=== PATIENT | female | born 1970 | race Caucasian/White ===

== ENCOUNTER 2016-09-29 12:13 | Inpatient (IN) | payer OTHER ==
[2016-09-29 12:47] VITALS: BMI 21.6
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
[2016-09-29] MEDS ORDERED: diphenhydrAMINE HCL 50 MG CAPSULE PO PRN (14:14)
[2016-09-29] MEDS ORDERED: ACETAMINOPHEN 325 MG TABLET (FP) PO PRN (14:14)
[2016-09-29] MEDS ORDERED: guaiFENesin/D-METHORPHAN HB 10 ML UNIT-DOSE CUPS PO PRN (14:14)
[2016-09-29] MEDS ORDERED: MAGNESIUM HYDROX 2400MG/30ML ORAL SUSPENSION 30 ML CUP PO PRN (14:14)
[2016-09-29] MEDS ORDERED: P-EPHED 60MG/TRIPROLIDI 2.5MG TABLET PO PRN (14:14)
[2016-09-29] MEDS ORDERED: hydrOXYzine PAMOATE 50 MG CAPSULE (FP) PO PRN (14:14)
[2016-09-29] MEDS ORDERED: IBUPROFEN 400 MG TABLET (FP) PO PRN (14:14)
[2016-09-29] MEDS ORDERED: MAGNESIUM CITRATE 300 ML BOTTLE PO PRN (14:14)
[2016-09-29] MEDS ORDERED: LOPERAMIDE HCL 2 MG CAPSULE PO PRN (14:14)
[2016-09-29] MEDS ORDERED: MENTHOL/PHENOL 1 EACH UD MM PRN (14:14)
[2016-09-29] MEDS ORDERED: MAG HYDROX/AL HYDROX/SIMETH 30 ML UNIT-DOSE CUP PO PRN (14:14)
[2016-09-29] MEDS ORDERED: diazePAM 5 MG TABLET PO ONE (14:45)
[2016-09-29] MEDS: diazePAM 5 MG TABLET PO SCH ×2 (15:35→22:18)
[2016-09-29 19:26] LABS: URINE APPEARANCE SLCLOUDY; URINE BILIRUBIN NEGATIVE (NEGATIVE); URINE BLOOD NEGATIVE (NEGATIVE); URINE COLOR DKYELLOW; URINE GLUCOSE (UA) NEGATIVE (NEGATIVE); URINE KETONE TRACE (NEGATIVE); URINE LEUK ESTERASE NEGATIVE (NEGATIVE); URINE NITRITE NEGATIVE (NEGATIVE); URINE UROBILINOGEN 2.0 E.U/dl E.U./dl (0.2-1.0)
[2016-09-29 19:27] LABS: URINE PROTEIN 1+ (NEGATIVE)
[2016-09-29] MEDS: diazePAM 5 MG TABLET PO PRN (19:29)
[2016-09-29 19:43] LABS: URINE MUCUS MANY; URINE RBC 2 /hpf (0-3); URINE WBC 2 /hpf (3-5)
[2016-09-29] MEDS: THIAMINE HCL 100 MG TABLET (FP) PO SCH (22:18)
[2016-09-29] MEDS: RANITIDINE HCL 150 MG TABLET (FP) PO SCH (22:18)
[2016-09-30] MEDS: diazePAM 5 MG TABLET PO SCH ×3 (05:27→22:38)
[2016-09-30] MEDS ORDERED: METHADONE HCL 40 MG DISPERSABLE TABLET PO ONE (08:27)
--- NOTE | 2016-09-30 09:38 | CONSULT ---
[facility] Psychiatric Consult - Data Date of interview: 09/30/16 Admission source: [facility] Identifying data: This is 45 years old female with no psychiatric hospitalization history intoxicated with: Alcohol and Nicotine, Opioids Substance Abuse History: Smoking history: Current some day smoker. Have you smoked in the past 12 months: Yes. Aproximately how many cigarettes per day: 1. Hx Chewing Tobacco Use: No. Initiated information on smoking cessation: Yes. 'Breaking Loose' booklet given: 09/29/16. - Substance & Tx. History. Hx Alcohol Use: Yes. Hx Substance Use: Yes. Substance Use Type: Alcohol, Tranquilizers. Hx Substance Use Treatment: No. - Substances Abused. Alcohol-vodka/beer. Route: Oral. Frequency: Daily. Amount used: 2 pts./2 (24 oz.). Age of first use: 31. Date of Last Use: 09/28/16. Xanax. Route: Oral. Frequency: Daily. Amount used: 10-12 tabs. (2 mg.). Age of first use: 41. Date of Last Use: 09/28/16 Medical History: MMTP - 40MG POQD, REPORTS HIGHEST METHADONE 150MG PER DAY IN THE PAST Psychiatric History: Patient reports insomnia, reports taking prior to admission : Ambien 10mg po qhs with good response Physical/Sexual Abuse/Trauma History: Denies Additional Comment: Ambien 10mg po qhs Mental Status Exam - Mental Status Exam Alert and Oriented to: Person Cognitive Function: Fair Patient Appearance: Well Groomed Mood: Anxious Affect: Mood Congruent Patient Behavior: Appropriate Speech Pattern: Appropriate Voice Loudness: Normal Thought Process: Goal Oriented Thought Disorder: Being Controlled Hallucinations: Denies Suicidal Ideation: Denies Homicidal Ideation: Denies Insight/Judgement: Fair Sleep: Difficulty falling asleep Appetite: Weight gain Muscle strength/Tone: Normal Gait/Station: Normal Additional Comments: Ambien 10mg po qhs Psychiatric Findings - Problem List ([place] 1, 2,3) (1) Alcohol dependence with uncomplicated withdrawal Current Visit: Yes Status: Chronic (2) Methadone maintenance therapy patient Current Visit: Yes Status: Chronic Comment: last dose received today with 40mg pending verification (3) Nicotine dependence Current Visit: Yes Status: Chronic Qualifiers: Nicotine product type: cigarettes Substance use status: uncomplicated Qualified Code(s): F17.210 - Nicotine dependence, cigarettes, uncomplicated (4) Sedative, hypnotic or anxiolytic dependence with withdrawal, uncomplicated Current Visit: Yes Status: Chronic (5) Drug-induced mood disorder Current Visit: Yes Status: Acute - Initial Treatment Plan Initial Treatment Plan: Ambien 10mg po qhs
[2016-09-30 10:16] LABS: MCH 30.3 pg (25.7-33.7); MCHC 33.6 g/dl (32.0-36.0); MEAN PLT VOLUME 9.9 fl (7.5-11.1); PLATELET COUNT 314 K/MM3 (134-434); RDW 13.7 % (11.6-15.6); WHITE BLOOD COUNT 7.4 K/mm3 (4.0-10.0)
[2016-09-30] MEDS: PRENATAL VITAMINS W/ FOLIC ACID TABLET (FP) PO SCH (10:20)
[2016-09-30] MEDS: diazePAM 5 MG TABLET PO PRN ×2 (10:20→20:33)
[2016-09-30] MEDS: RANITIDINE HCL 150 MG TABLET (FP) PO SCH ×2 (10:20→22:38)
[2016-09-30] MEDS: NICOTINE 7 MG/24 HOURS TOPICAL PATCH TD SCH (10:21)
[2016-09-30 11:03] LABS: ALBUMIN 3.8 g/dl (3.4-5.0); ALK PHOS 71 U/L (45-117); ANION GAP 11 (8-16); BILIRUBIN,TOTAL 0.7 mg/dL (0.2-1.0); CALCIUM 8.9 mg/dL (8.5-10.1); CO2 23 mmol/L (21-32); CREATININE 0.8 mg/dL (0.55-1.02); GLUCOSE,RANDOM 107 mg/dL (74-106); SGOT/AST 15 U/L (15-37); SGPT/ALT 30 U/L (12-78); TOT PROT 7.4 g/dl (6.4-8.2)
--- NOTE | 2016-09-30 13:41 | PN ---
[facility] CIWA - CIWA Score Nausea/Vomitin Muscle Tremors: 2 Anxiety: 3 Agitation: 3 Paroxysmal Sweats: 3 Orientation: 0-Oriented Tacttile Disturbances: 2-Mild Itch/Numbness/Burn Auditory Disturbances: 0-None Visual Disturbances: 0-None Headache: 0-None Present CIWA-Ar Total Score: 16 S Progress Note (SOAP) Subjective: interrupted sleep, sweats , bodyaches aseab Objective: 09/30/16 13:41 Last Vital Signs Temp Pulse Resp BP Pulse Ox 98.2 F 74 18 109/67 09/30/16 09:38 09/30/16 09:38 09/30/16 09:38 09/30/16 09:38 Laboratory Tests 09/29/16 09/30/16 09/30/16 14:00 06:00 06:00 WBC 7.4 RBC 5.03 Hgb 15.2 Hct 45.2 MCV 90.0 MCHC 33.6 RDW 13.7 Plt Count 314 MPV 9.9 Sodium 140 Potassium 3.8 Chloride 106 Carbon Dioxide 23 Anion Gap 11 BUN 15 Creatinine 0.8 Creat Clearance w eGFR > 60 Random Glucose 107 H Calcium 8.9 Total Bilirubin 0.7 AST 15 ALT 30 Alkaline Phosphatase 71 Total Protein 7.4 Albumin 3.8 Urine Color Dkyellow Urine Appearance Slcloudy Urine pH 5.0 Ur Specific [place] 1.029 Urine Protein 1+ H Urine Glucose (UA) Negative Urine Ketones Trace H Urine Blood Negative Urine Nitrite Negative Urine Bilirubin Negative Urine Urobilinogen 2.0 e.u/dl H Ur Leukocyte Esterase Negative Urine RBC 2 Urine WBC 2 Ur Epithelial Cells Rare Urine Mucus Many RPR Titer 09/30/16 06:00 WBC RBC Hgb Hct MCV MCHC RDW Plt Count MPV Sodium Potassium Chloride Carbon Dioxide Anion Gap BUN Creatinine Creat Clearance w eGFR Random Glucose Calcium Total Bilirubin AST ALT Alkaline Phosphatase Total Protein Albumin Urine Color Urine Appearance Urine pH Ur Specific [place] Urine Protein Urine Glucose (UA) Urine Ketones Urine Blood Urine Nitrite Urine Bilirubin Urine Urobilinogen Ur Leukocyte Esterase Urine RBC Urine WBC Ur Epithelial Cells Urine Mucus RPR Titer Nonreactive 09/30/16 17:49 pt aox3, ambulating , restless 09/30/16 17:50 Assessment: 09/30/16 13:41 withdrawl sx;s 09/30/16 17:49 Plan: cont. detox increase fluids clonidine bid
--- NOTE | 2016-09-30 16:17 | EKG ---
Test Reason : Blood Pressure : / mmHG Vent. Rate : 074 BPM Atrial Rate : 074 BPM P-R Int : 144 ms QRS Dur : 082 ms QT Int : 408 ms P-R-T Axes : 070 060 062 degrees QTc Int : 452 ms NORMAL SINUS RHYTHM NORMAL ECG NO PREVIOUS ECGS AVAILABLE Confirmed by KEE BILLINGSLEY, UNRULY ([id number]) on 09/30/2016 4:17:17 PM Referred By: Thierry Duenas Confirmed By:UNRULY SWEET MD
[2016-09-30] MEDS: THIAMINE HCL 100 MG TABLET (FP) PO SCH (22:38)
[2016-09-30] MEDS: cloNIDine HCL 0.1 MG TABLET PO SCH (22:38)
[2016-09-30] MEDS: ZOLPIDEM TARTRATE 10 MG TABLET (PARK CARE ONLY) PO PRN (22:38)
[2016-10-01] MEDS: diazePAM 5 MG TABLET PO PRN ×3 (06:03→19:07)
[2016-10-01] MEDS ORDERED: METHADONE HCL 40 MG DISPERSABLE TABLET PO ONE (08:42)
[2016-10-01] MEDS: diazePAM 5 MG TABLET PO SCH ×2 (10:34→22:44)
[2016-10-01] MEDS: cloNIDine HCL 0.1 MG TABLET PO SCH ×2 (10:34→22:44)
[2016-10-01] MEDS: RANITIDINE HCL 150 MG TABLET (FP) PO SCH ×2 (10:34→22:44)
[2016-10-01] MEDS: NICOTINE 7 MG/24 HOURS TOPICAL PATCH TD SCH (10:35)
[2016-10-01] MEDS: PRENATAL VITAMINS W/ FOLIC ACID TABLET (FP) PO SCH (10:36)
--- NOTE | 2016-10-01 15:46 | PN ---
[facility] CIWA - CIWA Score Nausea/Vomitin Muscle Tremors: 3 Anxiety: 2 Agitation: 2 Paroxysmal Sweats: 3 Orientation: 1-Uncertain about Date Tacttile Disturbances: 2-Mild Itch/Numbness/Burn Auditory Disturbances: 0-None Visual Disturbances: 2-Mild Sensitivity Headache: 0-None Present CIWA-Ar Total Score: 18 S Progress Note (SOAP) Subjective: Body Aches, Anxious, Chills, Abdominal cramping, Nausea, Diarrhea. Pt. denies cough, SOB, chest pain, and chest tightness. Objective: PT. A & O X 2 (DISORIENTED ABOUT DAY / DATE). PT. OBSERVED AMBULATING ON UNIT. 10/01/16 15:44 Vital Signs Temperature 99 F 10/01/16 10:43 Pulse Rate 71 10/01/16 10:43 Respiratory Rate 18 10/01/16 10:43 Blood Pressure 103/80 10/01/16 10:43 O2 Sat by Pulse Oximetry (%) Laboratory Last Values WBC 7.4 K/mm3 (4.0-10.0) 09/30/16 06:00 RBC 5.03 M/mm3 (3.60-5.2) 09/30/16 06:00 Hgb 15.2 GM/dL (10.7-15.3) 09/30/16 06:00 Hct 45.2 % (32.4-45.2) 09/30/16 06:00 MCV 90.0 fl (80-96) 09/30/16 06:00 MCHC 33.6 g/dl (32.0-36.0) 09/30/16 06:00 RDW 13.7 % (11.6-15.6) 09/30/16 06:00 Plt Count 314 K/MM3 (134-434) 09/30/16 06:00 MPV 9.9 fl (7.5-11.1) 09/30/16 06:00 Sodium 140 mmol/L (136-145) 09/30/16 06:00 Potassium 3.8 mmol/L (3.5-5.1) 09/30/16 06:00 Chloride 106 mmol/L (98-107) 09/30/16 06:00 Carbon Dioxide 23 mmol/L (21-32) 09/30/16 06:00 Anion Gap 11 (8-16) 09/30/16 06:00 BUN 15 mg/dL (7-18) 09/30/16 06:00 Creatinine 0.8 mg/dL (0.55-1.02) 09/30/16 06:00 Creat Clearance w eGFR > 60 (>60) 09/30/16 06:00 Random Glucose 107 mg/dL (74-106) H 09/30/16 06:00 Calcium 8.9 mg/dL (8.5-10.1) 09/30/16 06:00 Total Bilirubin 0.7 mg/dL (0.2-1.0) 09/30/16 06:00 AST 15 U/L (15-37) 09/30/16 06:00 ALT 30 U/L (12-78) 09/30/16 06:00 Alkaline Phosphatase 71 U/L (45-117) 09/30/16 06:00 Total Protein 7.4 g/dl (6.4-8.2) 09/30/16 06:00 Albumin 3.8 g/dl (3.4-5.0) 09/30/16 06:00 Urine Color Dkyellow 09/29/16 14:00 Urine Appearance Slcloudy 09/29/16 14:00 Urine pH 5.0 (5.0-8.0) 09/29/16 14:00 Ur Specific [place] 1.029 (1.001-1.035) 09/29/16 14:00 Urine Protein 1+ (NEGATIVE) H 09/29/16 14:00 Urine Glucose (UA) Negative (NEGATIVE) 09/29/16 14:00 Urine Ketones Trace (NEGATIVE) H 09/29/16 14:00 Urine Blood Negative (NEGATIVE) 09/29/16 14:00 Urine Nitrite Negative (NEGATIVE) 09/29/16 14:00 Urine Bilirubin Negative (NEGATIVE) 09/29/16 14:00 Urine Urobilinogen 2.0 e.u/dl E.U./dl (0.2-1.0) H 09/29/16 14:00 Ur Leukocyte Esterase Negative (NEGATIVE) 09/29/16 14:00 Urine RBC 2 /hpf (0-3) 09/29/16 14:00 Urine WBC 2 /hpf (3-5) 09/29/16 14:00 Ur Epithelial Cells Rare /hpf (FEW) 09/29/16 14:00 Urine Mucus Many 09/29/16 14:00 RPR Titer Nonreactive (NONREACTIVE) 09/30/16 06:00 LABS NOTED. PT. REPORTS HISTORY OF POSITIVE PPD. CXR ORDERED. RESULTS OF CXR DONE TODAY NOTED. 10/01/16 15:47 10/01/16 17:02 10/01/16 17:11 Assessment: 10/01/16 15:45 WITHDRAWAL SYMPTOMS. Plan: CONTINUE DETOX. ADVISED PT. TO FOLLOW-UP WITH PCP / REHAB MEDICAL PROVIDER AFTER DISCHARGE FROM DETOX FOR GENERAL MEDICAL ASSESSMENT AND FOR ABNORMAL RESULT OF CXR. DR. JACOB MD AND DR. ANNA MD CONSULTED ON THIS MATTER.
[2016-10-01] MEDS: THIAMINE HCL 100 MG TABLET (FP) PO SCH (22:44)
[2016-10-01] MEDS: ZOLPIDEM TARTRATE 10 MG TABLET (PARK CARE ONLY) PO PRN (22:44)
[2016-10-02] MEDS: diazePAM 5 MG TABLET PO PRN (04:17)
[2016-10-02] MEDS: METHADONE HCL 10 MG TABLET PO SCH (05:51)
[2016-10-02] MEDS: RANITIDINE HCL 150 MG TABLET (FP) PO SCH ×2 (10:58→22:40)
[2016-10-02] MEDS: diazePAM 5 MG TABLET PO SCH ×2 (10:58→22:40)
[2016-10-02] MEDS: PRENATAL VITAMINS W/ FOLIC ACID TABLET (FP) PO SCH (10:59)
[2016-10-02] MEDS: cloNIDine HCL 0.1 MG TABLET PO SCH ×2 (10:59→22:40)
[2016-10-02] MEDS: NICOTINE 7 MG/24 HOURS TOPICAL PATCH TD SCH (10:59)
--- NOTE | 2016-10-02 13:22 | PN ---
[facility] Progress Note (SOAP) Subjective: ALERT,IRRITABLE,ANXIOUS,INTERRUPTED SLEEP Objective: 10/02/16 13:11 Vital Signs Temperature 97.9 F 10/02/16 10:31 Pulse Rate 68 10/02/16 10:31 Respiratory Rate 20 10/02/16 10:31 Blood Pressure 135/57 10/02/16 10:31 O2 Sat by Pulse Oximetry (%) 10/02/16 13:12 CHEST X RAY REPORTED ILL DEFINED DENSITY RIGHT UPPER LOBE,OLD RIB FRACTURES, FOLLOW UP RECOMMENDED ON 10/01/16 REPORTED 10/02/16 13:15 Assessment: WITHDRAWAL SYMPTOM Plan: CONTINUE DETOX,DISCHARGE IN AM,DISCUSSED WITH PATIENT FOR THE NEED OF FOLLOW UP WITH HER PMD CONCERNING THE ABNORMAL CHEST RAY FINDING,PATIENT WILL GO TO SEE HER OWN PMD DR NOBLES UPON DISCHARGE FOR EVALUATION AND REFERENCE TO SEE GRAPE PICKER,PATIENT UNDERSTOOD,
[2016-10-02] MEDS: ZOLPIDEM TARTRATE 10 MG TABLET (PARK CARE ONLY) PO PRN (22:40)
[2016-10-02] MEDS: THIAMINE HCL 100 MG TABLET (FP) PO SCH (22:40)
[2016-10-03] MEDS: METHADONE HCL 10 MG TABLET PO SCH (05:56)
--- NOTE | 2016-10-03 08:43 | PN ---
S Progress Note (SOAP) Subjective: alert,no complaint Objective: 10/03/16 08:38 Vital Signs Temperature 99.4 F 10/03/16 07:29 Pulse Rate 110 H 10/03/16 07:29 Respiratory Rate 20 10/03/16 07:29 Blood Pressure 101/73 10/03/16 07:29 O2 Sat by Pulse Oximetry (%) Assessment: 10/03/16 08:39 detox completed,no withdrawal symptom Plan: discharge today,follow up with after care program as arrangement and pmd for medical management and for abnormal chest xray follow up upon discharge and laser cutter
--- NOTE | 2016-10-03 08:49 | DS ---
[facility] Detox Discharge Summary Admission Date: 09/29/16 Discharge Date: 10/03/16 - History Present History: Alcohol Dependence, Sedative Dependence, MMTP Additional Comments: follow up with after care program as arrangement and pmd for medical problem and abnormal chest x ray patient will go to see dr Patel her pmd upon discharge and for machined parts metal sprayer Pertinent Past History: nicotine dependence - Physical Exam Results Vital Signs: Vital Signs Temperature 99.4 F 10/03/16 07:29 Pulse Rate 110 H 10/03/16 07:29 Respiratory Rate 20 10/03/16 07:29 Blood Pressure 101/73 10/03/16 07:29 O2 Sat by Pulse Oximetry (%) Pertinent Admission Physical Exam Findings: withdrawal finding - Treatment Hospital Course: Detox Protocol Followed, Detoxed Safely, Responded well, Discharged Condition Good Patient has Accepted a Rehab Referral to: declined - Medication Discharge Medications: Ambulatory Orders Zolpidem Tartrate [Ambien] 10 mg PO HS PRN #14 tablet MDD 10 09/30/16 - Diagnosis (1) Alcohol dependence with uncomplicated withdrawal Current Visit: Yes Status: Chronic (2) Methadone maintenance therapy patient Current Visit: Yes Status: Chronic (3) Nicotine dependence Current Visit: Yes Status: Chronic Qualifiers: Nicotine product type: cigarettes Substance use status: uncomplicated Qualified Code(s): F17.210 - Nicotine dependence, cigarettes, uncomplicated (4) Sedative, hypnotic or anxiolytic dependence with withdrawal, uncomplicated Current Visit: Yes Status: Chronic - AMA Did Patient Leave Against Medical Advice: No
[2016-10-03 09:41] VITALS: BP 99/62; PULSE 98; TEMP 96
[2016-10-03] MEDS ORDERED: diazePAM 5 MG TABLET PO SCH (10:00)
== END 2016-10-03 09:14 | disposition home or self-care (01) | DRG 773 ==
LOC: YASAS 12:13 → Y6N 14:26
PROVIDERS: ADMIT Internal Medicine Addiction Medicine; ATTEND Internal Medicine Addiction Medicine
PROC: HZ2ZZZZ Detoxification Services for Substance Abuse Treatment (ICD-10-PCS; principal; 2016-10-03)
DX: F11.23 Opioid dependence with withdrawal (principal); F13.20 Sedative, hypnotic or anxiolytic dependence, uncomplicated; F10.230 Alcohol dependence with withdrawal, uncomplicated; F17.210 Nicotine dependence, cigarettes, uncomplicated; F19.24 Other psychoactive substance dependence with psychoactive substance-induced mood disorder
CPT/HCPCS: 36415; 71020-TC; 80053; 81003; 81015; 85027; 86593; 93005; 93010